=== PATIENT | male | born 1995 | race Two or more races ===

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

== ENCOUNTER 2018-01-22 14:28 | Emergency (ER) | payer BC, OTHER, MEDICAID ==
[2018-01-22] MEDS: FLEET OIL RETENTION ENEMA PR (15:45)
== END 2018-01-22 16:52 | disposition home or self-care (01) ==
LOC: M ED 14:28
DX: T18.5XXA Foreign body in anus and rectum, initial encounter (principal)
CPT/HCPCS: 74021

== ENCOUNTER → 2018-02-22 | Outpatient (CLI) | payer OTHER, BC ==
[~2018-02-22] MED LIST: MIRA3350 PO
--- NOTE | 2018-02-22 16:46 | REP ---
CT abdomen and pelvis without IV or oral contrast: History: History of foreign body in the colon. CT findings: Preliminary digital board saw runner radiograph demonstrates a normal bowel gas pattern. No opaque foreign body is visible on the board saw runner view. The lung bases are clear on axial CT images. The liver and the spleen are normal in size and homogeneous in texture. The gallbladder and pancreas are unremarkable. No adrenal lesion is seen. The kidneys are morphologically intact. No stone or cyst is seen. No retroperitoneal mass or adenopathy is observed. Normal appendix is seen in the right lower quadrant. Small and large bowel loops are normal on CT images. There is no evidence of opaque intraluminal foreign material in the rectum, colon or small intestine. No adenopathy. No mass or abnormal fluid collection. Prostate, seminal vesicles, and urinary bladder are unremarkable. No abdominal wall defect is seen. No bony destructive lesion is observed. Impression: Negative CT study of the abdomen and pelvis. No intraluminal colonic foreign body seen. Electronically Signed by Zeyad Hough MD 02/22/2018 05:08 P
== END ==
LOC: M RAD 15:37
PROVIDERS: ATTEND Surgery
DX: Z87.19 Personal history of other diseases of the digestive system (principal)

== ENCOUNTER 2018-03-20 18:39 | Emergency (ER) | payer OTHER, BC ==
[~2018-03-20] VITALS: Ht 175.3 cm; Wt 109.1 kg
[2018-03-20] MEDS ORDERED: IBUPROFEN 600 MG TAB PO ONE (19:45)
[2018-03-20] MEDS ORDERED: diphenhydrAMINE 50 MG CAP PO ONE (19:45)
[2018-03-20] MEDS ORDERED: METOCLOPRAMIDE 10 MG TAB PO ONE (19:45)
--- NOTE | 2018-03-20 20:17 | REPVR ---
EXAM: CT Head Without Contrast EXAM DATE/TIME: 03/20/2018 7:47 PM CLINICAL HISTORY: 22 years old, male; Injury or trauma; Fall; Initial encounter; Blunt trauma (contusions or hematomas); Additional info: ELDRIDGE, dizzy, v x1, fall, hit head x 2 TECHNIQUE: Axial computed tomography images of the head/brain without contrast. All CT scans at this facility use at least one of these dose optimization techniques: automated exposure control; mA and/or kV adjustment per patient size (includes targeted exams where dose is matched to clinical indication); or iterative reconstruction. COMPARISON: No relevant prior studies available. FINDINGS: Brain: There is no evidence of infarct, kim-white matter differentiation is preserved. There is no hemorrhage or extra-axial collection. There is no mass. Ventricles: There is no hydrocephalus. Bones/joints: Normal. No acute fracture. Sinuses: Normal as visualized. No acute sinusitis. Mastoid air cells: Normal as visualized. No mastoid effusion. Soft tissues: Normal. IMPRESSION: No intracranial injury or lesion. Electronically signed by: Imtiaz Crenshaw On 03/20/2018 20:16:36 PM
[2018-03-20] MEDS ORDERED: NAPR-50 PO (20:25)
[2018-03-20] MEDS ORDERED: REGL10TA6 PO (20:25)
[2018-03-20 20:37] VITALS: BP 144/81
== END 2018-03-20 20:41 | disposition home or self-care (01) ==
LOC: M ED 18:39
DX: S06.0X0A Concussion without loss of consciousness, initial encounter (principal); W00.9XXA Unspecified fall due to ice and snow, initial encounter; Y92.59 Other trade areas as the place of occurrence of the external cause; Y93.89 Activity, other specified; F17.200 Nicotine dependence, unspecified, uncomplicated

== ENCOUNTER → 2018-05-02 | Outpatient (CLI) | payer BC ==
[~2018-05-02] MED LIST changes: +NAPR-50 PO; +REGL10TA6 PO
--- NOTE | 2018-05-03 02:49 | REP ---
Clinical: Pain. Technique: AP, lateral, bilateral oblique views of the right first digit. Findings: No acute fracture dislocation. No significant degenerative changes. Joint spaces are intact and normal. Surrounding soft tissues are unremarkable. Impression: Normal first digit radiographs. Electronically Signed by Carlos Alberto Smith MD 05/03/2018 02:41 A
== END ==
LOC: M WUC 13:25
PROVIDERS: ATTEND Physician Assistant
DX: M79.644 Pain in right finger(s) (principal)

== ENCOUNTER 2018-12-10 20:43 | Emergency (ER) | payer BC ==
[~2018-12-10] VITALS: Ht 175.3 cm; Wt 104.5 kg
[~2018-12-10 20:43] MED LIST changes: -NAPR-50 PO; +NAPR-837 PO
[2018-12-10 21:04] VITALS: BP 168/102
[2018-12-10] MEDS ORDERED: ONDANSETRON 4 MG ORAL DISINTEGRATING TAB (Q0162 PER 1MG) PO ONE (21:15)
[2018-12-10] MEDS ORDERED: DULC10SU2 PR (21:45)
[2018-12-10] MEDS ORDERED: COLA100C5 PO (21:45)
--- NOTE | 2018-12-10 23:55 | REP ---
Clinical: Constipation and abdominal pain. Technique: supine and upright views of the abdomen and pelvis. Findings: Frontal upright view of the lung bases demonstrates no acute cardiopulmonary process or free air below the diaphragm to suspect pneumoperitoneum. Supine and upright views of the abdomen and pelvis demonstrate nonspecific bowel gas pattern without obstruction or perforation. No organomegaly. No abnormal calcifications. Skeletal structures normal for age. Impression: Nonspecific bowel gas pattern. Electronically Signed by Carlos Alberto Smith MD 12/10/2018 11:46 P
== END 2018-12-10 21:54 | disposition home or self-care (01) ==
LOC: M ED 20:43
DX: K59.00 Constipation, unspecified (principal)
CPT/HCPCS: 74019; 99283; Q0162

== ENCOUNTER → 2019-04-02 | Outpatient (REF) | payer BC ==
[~2019-04-02] MED LIST changes: +COLA100C5 PO; +DULC10SU2 PR
[2019-04-03 12:46] LABS: HEMATOCRIT 47.7 % (42.0-52.0); HEMOGLOBIN 15.9 g/dl (13.5-17.5); MEAN CORPUSCULAR HEMOGLOBIN 30.8 pg (27.0-33.0); MEAN CORPUSCULAR HGB CONC 33.3 g/dl (32.0-36.5); MEAN CORPUSCULAR VOLUME 92.3 fl (80.0-96.0); PLATELET COUNT, AUTOMATED 260 10^3/uL (150-450); RED BLOOD COUNT 5.17 10^6/uL (4.30-6.10); WHITE BLOOD COUNT 7.7 10^3/uL (4.0-10.0)
== END ==
LOC: M SFHCCLAY 14:13
PROVIDERS: ATTEND Family Medicine
DX: R63.4 Abnormal weight loss (principal); K62.5 Hemorrhage of anus and rectum

== ENCOUNTER → 2019-05-09 | Outpatient (CLI) | payer BC ==
[2019-05-09 12:40] LABS: ALBUMIN 4.5 GM/DL (3.2-5.2); ALT/SGPT 33 U/L (12-78); BILIRUBIN,DIRECT 0.1 MG/DL (0.0-0.2); BILIRUBIN,TOTAL 0.4 MG/DL (0.2-1.0); BLOOD UREA NITROGEN 12 MG/DL (7-18); FERRITIN 43 NG/ML (26-388); GLOMERULAR FILTRATION RATE > 60.0 (>60); HEPATITIS B SURFACE ANTIBODY POSITIVE (POSITIVE); IRON (FE) 97 UG/DL (65-175); PERCENT SATURATION 22.6 % (19.7-50.0); TOTAL IRON BINDING CAPACITY 430 UG/DL (250-450); TOTAL PROTEIN 7.7 GM/DL (6.4-8.2)
[2019-05-09 12:49] LABS: HEPATITIS B SURFACE ANTIGEN NEGATIVE (NEGATIVE)
[2019-05-09 13:18] LABS: HEPATITIS C VIRUS ABY INDEX < 0.0 INDEX (<0.8); HIV 1&2 SCREEN CENTAUR NEGATIVE (NEGATIVE)
== END ==
LOC: M LAB 11:13
PROVIDERS: ATTEND Internal Medicine Gastroenterology
DX: R63.4 Abnormal weight loss (principal)